=== PATIENT | male | born 1965 | race Caucasian/White ===

== ENCOUNTER 2020-11-14 15:58 | Inpatient (IN) | payer MEDICAID, SELFPAY ==
[~2020-11-14] VITALS: Ht 180.3 cm; Wt 86.6 kg
--- NOTE | 2020-11-14 16:10 | NUR ---
Patient to ER bed 07 to gown for evaluation. Side rails up.
[2020-11-14 16:12] VITALS: BP_SYST 140
--- NOTE | 2020-11-14 16:12 | NUR ---
Pt brought by ACLS/ pt homeless with c/o SOB, Hx of COPD , pt arrived on 5L NC with O2 99%,swelling noted on lower extremities, cap refill <3, pt afebrile at this time, speaking in full sentences, will cont to monitor.
--- NOTE | 2020-11-14 16:30 | NUR ---
Dr Michael evaluating patient at bedside
[2020-11-14] MEDS ORDERED: FURO-150 PO (16:37)
[2020-11-14] MEDS ORDERED: GLU500 PO (16:37)
--- NOTE | 2020-11-14 16:45 | NUR ---
Covid test sent to the lab
[2020-11-14 17:11] LABS: HEMATOCRIT 32.9 % (36-54); HEMOGLOBIN 10.2 g/dL (14.0-18.0); MEAN CORPUSCULAR HEMOGLOBIN 25 pg (27-31); MEAN CORPUSCULAR HGB CONC 31 % (32-36); MEAN CORPUSCULAR VOLUME 81 fL (79.0-98.0); PLATELET COUNT (AUTO) 186 K/uL (130-430); RED BLOOD CELL COUNT(AUTO) 4.05 MIL/uL (4.2-6.2); WHITE BLOOD COUNT (AUTO) 21.7 K/uL (4.8-10.8)
--- NOTE | 2020-11-14 17:30 | NUR ---
Pt A&Ox4, continues on NC 5L well tolerated.
[2020-11-14 17:47] LABS: SODIUM SERUM 131 mmol/L (136-145)
[2020-11-14 17:48] LABS: POTASSIUM 5.8 mmol/L (3.5-5.1)
[2020-11-14 17:49] LABS: ANION GAP 11 (5-15); CHLORIDE 99 mmol/L (98-107); CREATININE 2.39 mg/dL (0.55-1.30); GFR AFRICAN AMERICAN 37 mL/min (>90); GLUCOSE 202 mg/dL (70-99); UREA NITROGEN, BLOOD 30 mg/dL (8-21)
[2020-11-14 17:50] LABS: ALANINE AMINOTRANSFERASE 22 U/L (12-78); ALBUMIN 2.5 g/dL (3.4-4.8); ASPARTATE AMINOTRANSFERASE 68 U/L (10-37); TOTAL BILIRUBIN 1.3 mg/dL (0.0-1.0)
[2020-11-14 17:53] LABS: BAND % (MANUAL) 25 % (0-6); BASOPHILS % (MANUAL) 0 % (0-2); EOSINOPHILS % (MANUAL) 0 % (0-7); LYMPHOCYTES % (MANUAL) 6 % (20-46); MONOCYTES % (MANUAL) 4 % (0-11)
[2020-11-14 18:17] LABS: ACETONE, SERUM NEGATIVE (NEGATIVE); CKMB RELATIVE INDEX 0.6 (0.0-2.9); CREATINE KINASE MB 2.4 ng/mL (0-3.6)
[2020-11-14 18:26] LABS: INR 1.6 (0.80-1.20); PROTHROMBIN TIME 16.6 SECS (9.5-12.5)
[2020-11-14] MEDS ORDERED: SODIUM POLYSTYRENE SULFONATE 15 GM/60 ML UDBTL PO ONE (19:00)
[2020-11-14] MEDS ORDERED: LEVOFLOXACIN IN DEXTROSE 5 % 100 ML IV ONE (19:00)
[2020-11-14] MEDS ORDERED: NACL 0.9% 1,000 ML IV ONE ×2 (19:00)
[2020-11-14] MEDS ORDERED: PIPERACILLIN/TAZO 3.375 GM in NS 50 ML IV ONE (19:00)
[2020-11-14] MEDS ORDERED: PIPERACILLIN/TAZOBACTAM 3.375 GM/VIAL (ZOSYN) IV ONE (19:04)
[2020-11-14] MEDS ORDERED: ONDANSETRON HCL 4 MG/2 ML VIAL IVP ONE (19:15)
--- NOTE | 2020-11-14 19:17 | NUR ---
Dr Michael notified about elevated patient's BNP , per Dr Michael only give 1 liter of NS 100cc/hr and reassess patient.
--- NOTE | 2020-11-14 19:27 | NUR ---
receieved report from OMAR gold. will assume all care of patient. Patient AAOx4 resting, denies any chest pain or shortness of breath at this time. IVF running without difficulties.
--- NOTE | 2020-11-14 19:54 | NUR ---
Patient will be admitted to care of [facility]. Admitted to TELE unit. REQUESTED BED WITH CHARGE NURSE. Belongings list completed. Complete and up to date summary report printed. SBAR report to be given at bedside with opportunity for questions.
--- NOTE | 2020-11-14 19:59 | NUR ---
Patient's code status is FULL CODE paperwork completed and placed in chart.
--- NOTE | 2020-11-14 21:38 | NUR ---
ADMISSION NOTE Received patient from ER via [place], received report from Mary RN. Patient admitted with diagnosis of Sepsis and Pneumonia. Patient oriented to hospital routine, call light, toileting and safety-patient verbalized understanding.
[2020-11-14 21:45] VITALS: BP_SYST 103
--- NOTE | 2020-11-14 21:50 | NUR ---
INITIAL NOTES PATIENT RESTING, NO SIGNS OF SOB AT THIS TIME. CALL LIGHT WITHIN REACH, BED ALARM ON, BED AT LOWEST POSITION, BED LOCKED. FALL, RESPIRATORY, ASPIRATION, AND SAFETY PRECAUTIONS IN PLACE. PATIENT DEMONSTRATES PROPER CALL LIGHT USAGE. WILL CONTINUE TO MONITOR.
--- NOTE | 2020-11-14 22:00 | NUR ---
PATIENT'S BELONGINGS- METH PIPE AND TORCH WITH SECURITY JESSICA, EXPLAINED TO PATIENT THAT METH PIPE CANNOT BE RETURNED TO PATIENT AND HAS TO BE DISPOSED AND THE TORCH CAN BE GIVEN BACK TO PATIENT UPON DISCHARGE. PATIENT SLEEPY AT THE TIME BUT VERBALIZES BACK UNDERSTANDING.
[2020-11-14] MEDS ORDERED: DEXTROSE 50% JECT 50 ML DISP.SYRIN IVP PRN (22:15)
[2020-11-14] MEDS ORDERED: HYDROcodone/ACETAMIN 5-325 MG TAB (NORCO/ VICODIN) PO PRN (22:15)
[2020-11-14] MEDS ORDERED: GLUCOSE (DEXTROSE) ORAL GEL -Adults PO PRN (22:15)
[2020-11-14] MEDS ORDERED: D5W 1,000 ML IV PRN (22:15)
[2020-11-14] MEDS ORDERED: NALOXONE HCL 0.4 MG/ML AMP (NARCAN) IVP PRN ×2 (22:15)
[2020-11-14] MEDS ORDERED: ACETAMINOPHEN 325 MG TABLET PO PRN (22:15)
[2020-11-14] MEDS ORDERED: D5/0.45 NS 1,000 ML IV SCH (22:15)
[2020-11-14] MEDS ORDERED: ONDANSETRON HCL 4 MG/2 ML VIAL IVP PRN (22:15)
[2020-11-14] MEDS ORDERED: LEVOFLOXACIN 250 MG/D5W 50 ML IV ONE (23:30)
[2020-11-14] MEDS ORDERED: PIPERACILLIN/TAZOBACTAM 2.25 GM VIAL IV ONE (23:31)
--- NOTE | 2020-11-14 23:51 | NUR ---
CONSULTATION PAGED/CALLED Reason for Consultation: SEPSIS Person Who was Notified:OMAR Consulting Physician: Lissa NIEVES Motor Vehicle Clerk Specialty: Ordering Physician: Cruz ARRIAGA
--- NOTE | 2020-11-14 23:53 | NUR ---
CONSULTATION PAGED/CALLED Reason for Consultation: MAGALIE Person Who was Notified: OMAR Consulting Physician: JARAD LOREDO IS ATM MECHANIC FOR LIZETH LOREDO Public Housing Interviewer Specialty: Ordering Physician: Cruz ARRIAGA
--- NOTE | 2020-11-14 23:57 | NUR ---
CONSULTATION PAGED/CALLED Reason for Consultation: TRANSAMINITIS Person Who was Notified:OMAR Consulting Physician: ARDEN OTERO ACADEMY EDUCATION DIRECTOR Impersonator Character Specialty: Ordering Physician: Cruz ARRIAGA
[2020-11-15 00:15] VITALS: BP_SYST 100
--- NOTE | 2020-11-15 00:43 | NUR ---
CONSULTATION PAGED/CALLED Reason for Consultation: ELEVATED TROP Person Who was Notified:FLORENTINO Consulting Physician: Opal ARRIAGA Skilled Nursing Professional Specialty: Ordering Physician: Roxanne ROMERO
[2020-11-15] MEDS: PIPERACILLIN/TAZO 2.25G/DEX-IS 50 ML IV SCH ×5 (01:07→23:51)
--- NOTE | 2020-11-15 04:10 | NUR ---
PATIENT USED CALL LIGHT TO ASK FOR BED HEARN, NO SIGNS OF DISTRESS NOTED. NO OTHER NEEDS AT THIS TIME. WILL CONTINUE TO MONITOR.
[2020-11-15] MEDS: INSULIN REGULAR, HUMAN 100 UNITS/ML, 10 ML VIAL (humuLIN R) SUBCUT PRN ×4 (06:09→21:03)
--- NOTE | 2020-11-15 06:40 | NUR ---
DR. CALVERT MAKING ROUNDS, WILL FOLLOW THROUGH.
--- NOTE | 2020-11-15 06:43 | NUR ---
CLOSING NOTES PATIENT RESTING, LESS LETHARGIC THIS MORNING, NO SIGNS OF SOB THROUGHOUT SHIFT. CALL LIGHT WITHIN REACH, BED ALARM ON, BED AT LOWEST POSITION, BED LOCKED. FALL, RESPIRATORY, ASPIRATION, AND SAFETY PRECAUTIONS IN PLACE THROUGHOUT SHIFT. PATIENT DEMONSTRATES PROPER CALL LIGHT USAGE. ALL NEEDS MET THROUGHOUT SHIFT. WILL ENDORSE CARE TO ONCOMING SHIFT.
--- NOTE | 2020-11-15 07:30 | NUR ---
Routine Patient resting comfortably in bed with no distress noted. Patient stable at this time.
[2020-11-15 07:36] LABS: CALCIUM 7.7 mg/dL (8.4-11.0); CREATININE 2.32 mg/dL (0.55-1.30); PHOSPHORUS 3.9 mg/dL (2.7-4.5); POTASSIUM 4.2 mmol/L (3.5-5.1); TOTAL BILIRUBIN 0.9 mg/dL (0.0-1.0)
[2020-11-15 08:00] VITALS: BP_SYST 106
[2020-11-15] MEDS ORDERED: FUROSEMIDE 40 MG/4 ML VIAL IVP ONE (08:00)
[2020-11-15 08:24] LABS: BASOPHILS % (AUTO) 0.1 % (0.0-2.0); HEMATOCRIT 30.4 % (36-54); HEMOGLOBIN 9.4 g/dL (14.0-18.0); LYMPHOCYTES % (AUTO) 5.2 % (20.5-51.5); MEAN CORPUSCULAR HEMOGLOBIN 26 pg (27-31); MEAN CORPUSCULAR HGB CONC 31 % (32-36); MEAN CORPUSCULAR VOLUME 83 fL (79.0-98.0); MONOCYTES # (AUTO) 0.6 K/uL (0.0-1.0); MONOCYTES % (AUTO) 3.2 % (1.7-9.3); NEUTROPHILS # (AUTO) 16.8 K/uL (1.8-7.7); NEUTROPHILS % (AUTO) 91.5 % (40.0-70.0); PLATELET COUNT (AUTO) 157 K/uL (130-430); RED BLOOD CELL COUNT(AUTO) 3.68 MIL/uL (4.2-6.2); RED CELL DISTRIBUTION WIDTH 18.8 % (9.0-15.0); WHITE BLOOD COUNT (AUTO) 18.4 K/uL (4.8-10.8)
--- NOTE | 2020-11-15 09:55 | NUR ---
Patient resting quietly in bed with Dr. Michelle Carias at bedside. Patient stable at this time. Addendum: 11/15/20 at 1218 by Erin Ballard RN Late entry: Doctor made aware of critical lab: troponin 0.451.
--- NOTE | 2020-11-15 10:04 | NUR ---
Nutrition Update Preston Scale 17 noted. Pt admitted for sepsis and pneumonia. Diet: CCHO, cardiac BMI: 26.8 kg/m2 RD to follow per nutrition care standards.
--- NOTE | 2020-11-15 10:05 | NUR ---
CONSULTATION PAGED/CALLED Reason for Consultation: [] GALLSTONES Person Who was Notified: [] VICKY Consulting Physician: [] DR Roxanne ANDREWS Proposal Manager Writer Specialty: [] GEN SURGEON Ordering Physician: [] DR Roxanne ARRIAGA
--- NOTE | 2020-11-15 10:08 | NUR ---
Scheduled IVP medication given per order. Patient stable with Liane (sql tech) at bedside to do 2D echo.
[2020-11-15 11:12] LABS: AMYLASE 10 U/L (0-100); LIPASE 24 U/L (73-393)
[2020-11-15 11:13] LABS: ALCOHOL, BLOOD < 3 mg/dL (<10)
--- NOTE | 2020-11-15 11:14 | NUR ---
Scheduled IV abx given per order. Checked blood sugar: 172 mg/dl - will cover per sliding scale. Emptied 300mls of clear, light williams urine from urinal. Patient stable at this time. Addendum: 11/15/20 at 1157 by Erin Ballard RN Covered per sliding scale.
[2020-11-15 12:08] VITALS: BP_SYST 123
[2020-11-15 12:25] LABS: BARBITURATE, URINE NEGATIVE (NEG <=200); BENZODIAZEPINE, URINE NEGATIVE (NEG <=150); CANNABINOID, URINE NEGATIVE (NEG <=50); COCAINE, URINE NEGATIVE (NEG <=150); METHAMPHETAMINES SCREEN,URINE POSITIVE (NEG <=500); OPIATE, URINE NEGATIVE (NEG <=100); PHENCYCLIDINE SCREEN,URINE NEGATIVE (NEG <=25); UR TRICYCLIC ANTIDEPRESSANTS NEGATIVE (NEG <=300); URINE AMPHETAMINE POSITIVE (NEG <=500); URINE METHADONE NEGATIVE (NEG <=200); URINE OXYCODONE SCREEN NEGATIVE (NEG <=100); URINE PROPOXYPHENE SCREEN NEGATIVE (NEG <=300)
[2020-11-15] MEDS ORDERED: MAGNESIUM SUL 2 GM/50 ML PREMIX IV ONE ×2 (12:30→15:45)
[2020-11-15] MEDS ORDERED: MAGNESIUM SULFATE 1 GM/2 ML VIAL IVP ONE (12:30)
[2020-11-15 13:08] LABS: BILIRUBIN,URINE NEGATIVE (NEGATIVE); CLARITY/URINE CLEAR (CLEAR); COLOR,URINE YELLOW (YELLOW); GLUCOSE,URINE NEGATIVE (NEGATIVE); KETONES,URINE NEGATIVE (NEGATIVE); LEUKOCYTE ESTERASE ,URINE NEGATIVE (NEGATIVE); NITRITE, URINE NEGATIVE (NEGATIVE); PH,URINE 5.5 (5.0-8.0); PROTEIN URINE 1+ (NEGATIVE)
[2020-11-15 13:54] LABS: BLOOD, URINE TRACE (NEGATIVE)
--- NOTE | 2020-11-15 14:52 | NUR ---
Dietitian Recommendations * Recommend CCHO, cardiac, chopped diet w/ Glucerna BID (ONS provides an additional 440 kcal/day, 20 gm protein/day) * Moist foods/provide extra sauces/gravies TID * Consider ST mary martel LP, RD Please refer to Nutrition Assessment for details. Addendum: 11/15/20 at [address] Amended: Links added.
--- NOTE | 2020-11-15 15:40 | NUR ---
Scheduled IV medication given per order. Patient resting quietly in bed with no distress noted; denies any pain. Patient stable.
[2020-11-15 16:48] VITALS: BP_SYST 106
--- NOTE | 2020-11-15 16:58 | NUR ---
Checked blood sugar: 157 mg/dl - will cover per sliding scale. Patient stable at this time. Addendum: 11/15/20 at 1708 by Erin Ballard RN Covered per sliding scale. Addendum: 11/15/20 at 1740 by Erin Ballard RN Late entry: 1700: Emptied 575mls of clear, yellow urine from urinal.
[2020-11-15 17:27] LABS: BACTERIA,URINE RARE /HPF (None Seen); RBC,URINE 0-3 /HPF (0-3); WBC,URINE 0-3 /HPF (0-3)
[2020-11-15 17:28] LABS: MUCUS,URINE None Seen /LPF (None Seen)
--- NOTE | 2020-11-15 17:42 | NUR ---
Scheduled IV abx given per order. Patient resting in quietly in bed at this time. Patient stable.
--- NOTE | 2020-11-15 18:35 | NUR ---
Patient eating dinner at this time. Stable throughout shift with no complaint of pain or discomfort.
--- NOTE | 2020-11-15 19:15 | NUR ---
OPENING NOTES: Received patient report from morning shift RN. Patient in bed, AAOx4, breathing evenly and nonlabored on room air, HOB elevated, no S/S of distress. Patient has IV on the LFA 18G, patent, benign, and flushing. No S/S of infection or infiltration. Bed armed, locked, and at lowest position. Educated patient on plan of care, fall/safety precaution, call light system. Patient verbalized understanding and returned demonstration. Will continue to monitor.
[2020-11-15 20:00] VITALS: BP_SYST 115
[2020-11-15] MEDS ORDERED: LEVOFLOXACIN 250 MG/D5W 50 ML IV SCH ×2 (21:00)
[2020-11-15] MEDS: HYDROcodone/ACETAMIN 10-325 MG TAB PO PRN (21:50)
[2020-11-16] VITALS: BP_SYST 107
[2020-11-16] MEDS: PIPERACILLIN/TAZO 2.25G/DEX-IS 50 ML IV SCH ×4 (06:00→23:05)
[2020-11-16] MEDS: INSULIN REGULAR, HUMAN 100 UNITS/ML, 10 ML VIAL (humuLIN R) SUBCUT PRN ×4 (06:00→21:37)
--- NOTE | 2020-11-16 06:33 | NUR ---
CLOSING NOTES: Patient on bed, eyes closed, no S/S of distress, breathing evenly and nonlabored on room air, HOB elevated, with IV on LFA 18g, patent, benign, and flushing, no S/S of infection or infiltration. Wound care provided. Bed armed, locked, and at lowest position. Will continue to monitor and endorse care to morning RN.
--- NOTE | 2020-11-16 07:25 | NUR ---
OPENING NOTES: RECEIVED REPORT FROM SITE SUPERINTENDENT NURSE. PATIENT IS AWAKE LAYING DOWN IN BED. TOLERATED OXYGEN ON ROOM AIR WITH NO DISTRESS NOTED. IV LINE PATENT AND INTACT WITH NO INFILTRATION NOTED. PATIENT STABLE AT THIS TIME. SAFETY, FALL, AND ASPIRATION PRECAUTIONS ARE IN PLACE. BED LOCKED IN LOWEST POSITION AND CALL LIGHT IN REACH. WILL CONTINUE TO MONITOR PATIENT FOR ANY CHANGES.
[2020-11-16 08:00] VITALS: BP_SYST 124
[2020-11-16 08:17] LABS: BASOPHILS % (AUTO) 0.3 % (0.0-2.0); EOSINOPHILS % (AUTO) 0.3 % (0.0-4.0); HEMATOCRIT 33.6 % (36-54); HEMOGLOBIN 10.6 g/dL (14.0-18.0); LYMPHOCYTES # (AUTO) 1.2 K/uL (1.0-5.5); LYMPHOCYTES % (AUTO) 10.2 % (20.5-51.5); MEAN CORPUSCULAR HEMOGLOBIN 26 pg (27-31); MEAN CORPUSCULAR HGB CONC 32 % (32-36); MEAN CORPUSCULAR VOLUME 82 fL (79.0-98.0); MONOCYTES # (AUTO) 0.8 K/uL (0.0-1.0); MONOCYTES % (AUTO) 6.4 % (1.7-9.3); NEUTROPHILS % (AUTO) 82.8 % (40.0-70.0); PLATELET COUNT (AUTO) 166 K/uL (130-430); RED BLOOD CELL COUNT(AUTO) 4.12 MIL/uL (4.2-6.2); RED CELL DISTRIBUTION WIDTH 19.2 % (9.0-15.0)
[2020-11-16 08:27] LABS: WHITE BLOOD COUNT (AUTO) 12.1 K/uL (4.8-10.8)
[2020-11-16] MEDS: FUROSEMIDE 20 MG/2 ML VIAL IVP SCH (08:43)
[2020-11-16 08:47] LABS: ALBUMIN 1.9 g/dL (3.4-4.8); CALCIUM 7.9 mg/dL (8.4-11.0); CREATININE 1.79 mg/dL (0.55-1.30); PHOSPHORUS 4.1 mg/dL (2.7-4.5); POTASSIUM 3.9 mmol/L (3.5-5.1); TOTAL BILIRUBIN 0.8 mg/dL (0.0-1.0)
--- NOTE | 2020-11-16 09:07 | NUR ---
Nutrition Note Nutrition Consult received for open wounds, diabetic 11/16/20 5260. Pt was seen and assessed by RD 11/15/20. Please refer to Nutrition Assessment for details. RD to continue to follow as per nutrition care standards.
[2020-11-16 09:25] LABS: ERYTHROCYTE SEDIMENTATION RATE 27 MM/HR (0-15)
[2020-11-16 09:36] LABS: C-REACTIVE PROTEIN QUANT 20.5 mg/dL (0-0.5)
[2020-11-16 12:00] VITALS: BP_SYST 120
[2020-11-16 16:00] VITALS: BP_SYST 122
--- NOTE | 2020-11-16 18:35 | NUR ---
CLOSING NOTES: PATIENT IS AWAKE LAYING DOWN IN BED. TOLERATED OXYGEN ON ROOM AIR WITH NO DISTRESS NOTED. IV LINE PATENT AND INTACT WITH NO INFILTRATION NOTED. PATIENT STABLE AT THIS TIME. SAFETY, FALL, AND ASPIRATION PRECAUTIONS REMAINED IN PLACE. BED LOCKED IN LOWEST POSITION AND CALL LIGHT IN REACH. WILL ENDORSE PATIENT CARE TO ONCOMING LEVER MILLER NURSE.
--- NOTE | 2020-11-16 19:15 | NUR ---
OPENING NOTES: Received patient report from am nurse. Patient in bed, AAOx4, breathing evenly and nonlabored on 2L of O2 via nc, HOB elevated, no s/s of distress. Patient has an IV on the LFA 18G, patent, benign, and flushing. No S/S of infection or infiltration. Bed armed, locked, and at lowest position. Educated patient on plan of care and call light use. Patient verbalized understanding with return demonstration. Will continue to monitor.
[2020-11-16 20:00] VITALS: BP_SYST 108
--- NOTE | 2020-11-16 21:20 | NUR ---
TRANSFER OF CARE Endorsed care to OMAR Gu. Patient in bed, AAOx4, breathing evenly and nonlabored on 2L of O2 via nc, HOB elevated, no s/s of distress. Patient has an IV on the LFA 18G, patent, benign, and flushing. No S/S of infection or infiltration. Bed armed, locked, and at lowest position. Educated patient on plan of care and call light use. Patient verbalized understanding with return demonstration. Transferred from room 102B to 121 C, patient belongings are at bedside. Patient tolerated transfer well.
--- NOTE | 2020-11-16 21:25 | NUR ---
TRANSFER OF CARE RECEIVED PATIENT RESTING, NO SIGNS OF DISTRESS NOTED. 2L NC. FALL, SAFETY, RESPIRATORY, AND ASPIRATION PRECAUTIONS IN PLACE. CALL LIGHT WITHIN REACH, BED ALARM ON, BED AT LOWEST POSITION, BED LOCKED. ALL BELONGINGS WITH PATIENT. NO NEEDS AT THIS TIME. WILL CONTINUE TO MONITOR.
--- NOTE | 2020-11-16 23:10 | NUR ---
SPOKE TO DR. ARRIAGA, RECEIVED ONE TIME ORDER OF TRAZADONE 50 MG PO FOR SLEEP, PATIENT REQUESTS MEDICATION TO HELP WITH SLEEP. WILL FOLLOW THROUGH.
--- NOTE | 2020-11-16 23:13 | NUR ---
HIGH ALERT NOTE: Called Dr. ARRIAGA back at identified within the medical roster to verify physician authenticity.
[2020-11-16] MEDS ORDERED: traZODone HCL 50 MG TABLET (DESYREL) PO ONE (23:15)
[2020-11-17] VITALS: BP_SYST 112
--- NOTE | 2020-11-17 00:20 | NUR ---
PATIENT RESTING, NO SINGS OF ACUTE RESPIRATORY DISTRESS NOTED. WILL CONTINUE TO MONITOR.
--- NOTE | 2020-11-17 01:34 | NUR ---
PATIENT RESTING, NO SIGNS OF DISTRESS NOTED. NO NEEDS AT THIS TIME. WILL CONTINUE TO MONITOR.
[2020-11-17] MEDS: PIPERACILLIN/TAZO 2.25G/DEX-IS 50 ML IV SCH ×4 (05:31→23:34)
--- NOTE | 2020-11-17 07:10 | NUR ---
CLOSING NOTES PATIENT RESTING, LESS LETHARGIC THIS MORNING, NO SIGNS OF SOB THROUGHOUT SHIFT. CALL LIGHT WITHIN REACH, BED ALARM ON, BED AT LOWEST POSITION, BED LOCKED. FALL, RESPIRATORY, ASPIRATION, AND SAFETY PRECAUTIONS IN PLACE THROUGHOUT SHIFT. PATIENT DEMONSTRATES PROPER CALL LIGHT USAGE. ALL NEEDS MET THROUGHOUT SHIFT. WILL ENDORSE CARE TO ONCOMING SHIFT. Addendum: 11/17/20 at 0725 by Riccardo Encarnacion RN WRONG NOTE- PLEASE DISREGARD.
--- NOTE | 2020-11-17 07:20 | NUR ---
OPENING NOTES: RECEIVED REPORT FROM WEATHERIZATION OPERATIONS MANAGER NURSE. PATIENT IS AWAKE LAYING DOWN IN BED. TOLERATED OXYGEN ON ROOM AIR WITH NO DISTRESS NOTED. IV LINE PATENT AND INTACT WITH NO INFILTRATION NOTED. PATIENT STABLE AT THIS TIME. SAFETY, FALL, AND ASPIRATION PRECAUTIONS ARE IN PLACE. BED LOCKED IN LOWEST POSITION AND CALL LIGHT IN REACH. WILL CONTINUE TO MONITOR PATIENT FOR ANY CHANGES.
--- NOTE | 2020-11-17 07:25 | NUR ---
CLOSING NOTES PATIENT RESTING, NO SIGNS OF SOB THROUGHOUT SHIFT. HOB ELEVATED. CALL LIGHT WITHIN REACH, BED ALARM ON, BED AT LOWEST POSITION, BED LOCKED. FALL, RESPIRATORY, ASPIRATION, AND SAFETY PRECAUTIONS IN PLACE THROUGHOUT SHIFT. PATIENT DEMONSTRATED PROPER CALL LIGHT USAGE. ALL NEEDS MET THROUGHOUT SHIFT. WILL ENDORSE CARE TO ONCOMING SHIFT.
[2020-11-17 07:44] LABS: CALCIUM 7.9 mg/dL (8.4-11.0); CREATININE 1.48 mg/dL (0.55-1.30); PHOSPHORUS 3.9 mg/dL (2.7-4.5)
[2020-11-17 08:00] VITALS: BP_SYST 111
[2020-11-17 08:06] LABS: FERRITIN 100 ng/mL (30-400); HEPATITIS A AB, IgM Negative (Negative); HEPATITIS B CORE AB, IgM Negative (Negative); HEPATITIS B SURFACE AG Negative (Negative)
[2020-11-17 09:27] LABS: BASOPHILS % (AUTO) 0.3 % (0.0-2.0); EOSINOPHILS # (AUTO) 0.1 K/uL (0.0-0.4); EOSINOPHILS % (AUTO) 0.7 % (0.0-4.0); HEMATOCRIT 31.9 % (36-54); HEMOGLOBIN 10.2 g/dL (14.0-18.0); LYMPHOCYTES # (AUTO) 1.2 K/uL (1.0-5.5); LYMPHOCYTES % (AUTO) 15.7 % (20.5-51.5); MEAN CORPUSCULAR HEMOGLOBIN 26 pg (27-31); MEAN CORPUSCULAR HGB CONC 32 % (32-36); MEAN CORPUSCULAR VOLUME 81 fL (79.0-98.0); MONOCYTES # (AUTO) 0.4 K/uL (0.0-1.0); MONOCYTES % (AUTO) 5.5 % (1.7-9.3); NEUTROPHILS # (AUTO) 5.9 K/uL (1.8-7.7); NEUTROPHILS % (AUTO) 77.8 % (40.0-70.0); PLATELET COUNT (AUTO) 158 K/uL (130-430); RED BLOOD CELL COUNT(AUTO) 3.92 MIL/uL (4.2-6.2); RED CELL DISTRIBUTION WIDTH 18.5 % (9.0-15.0)
[2020-11-17] MEDS: FUROSEMIDE 20 MG/2 ML VIAL IVP SCH (09:29)
[2020-11-17 09:59] LABS: WHITE BLOOD COUNT (AUTO) 7.6 K/uL (4.8-10.8)
[2020-11-17 10:48] LABS: C-REACTIVE PROTEIN QUANT 13.4 mg/dL (0-0.5)
[2020-11-17 10:51] LABS: ERYTHROCYTE SEDIMENTATION RATE 25 MM/HR (0-15)
[2020-11-17] MEDS: INSULIN REGULAR, HUMAN 100 UNITS/ML, 10 ML VIAL (humuLIN R) SUBCUT PRN ×3 (11:10→21:00)
--- NOTE | 2020-11-17 12:00 | NUR ---
HIGH ALERT NOTE: Called Cleve Lazar called back at noon identified within the medical roster to verify physician authenticity.
[2020-11-17 12:21] VITALS: BP_SYST 110
[2020-11-17] MEDS ORDERED: MAGNESIUM SULFATE 1 GM/2 ML VIAL IVP ONE (14:30)
[2020-11-17] MEDS ORDERED: MAGNESIUM SULFATE 1 GM in NS 100 ML IV ONE (15:00)
[2020-11-17 16:34] VITALS: BP_SYST 114
--- NOTE | 2020-11-17 18:50 | NUR ---
CLOSING NOTES: PATIENT IS AWAKE LAYING DOWN IN BED. TOLERATED OXYGEN ON ROOM AIR WITH NO DISTRESS NOTED. IV LINE PATENT AND INTACT WITH NO INFILTRATION NOTED. PATIENT STABLE AT THIS TIME. SAFETY, FALL, AND ASPIRATION PRECAUTIONS REMAINED IN PLACE. BED LOCKED IN LOWEST POSITION AND CALL LIGHT IN REACH. WILL ENDORSE PATIENT CARE TO ONCOMING BILLING ADJUDICATOR NURSE.
--- NOTE | 2020-11-17 19:30 | NUR ---
Opening note Received pt report from am nurse. resting in bed with HOB elevated, AAOx4, breathing evenly and nonlabored on 2L of O2 via nc stat 100%. No s/s of distress. Has IV on the LFA 18G, patent and benign, no complications or or infiltration. Bed armed/locked/lowest position with call light within reach. Educated patient on plan of care and call light use. Patient verbalized understanding with return demonstration. On safety/fall/aspiration precaution.
[2020-11-17 20:35] VITALS: BP_SYST 126
[2020-11-17] MEDS: CARVEDILOL 3.125 MG TABLET (COREG) PO SCH (20:50)
[2020-11-17] MEDS: HYDROcodone/ACETAMIN 10-325 MG TAB PO PRN (21:51)
--- NOTE | 2020-11-18 00:15 | NUR ---
note Pt resting comfortable, no c/o pain or discomfort, vitals stable.
--- NOTE | 2020-11-18 00:30 | NUR ---
note Pt awake, alert. Vitals stable, no distress noted. All needs attended to.
[2020-11-18 00:34] VITALS: BP_SYST 113
--- NOTE | 2020-11-18 04:46 | NUR ---
note Pt sleeping, no distress noted. Empty urinal at bedside with 250 output.
[2020-11-18] MEDS: PIPERACILLIN/TAZO 2.25G/DEX-IS 50 ML IV SCH ×3 (05:16→17:21)
[2020-11-18] MEDS: INSULIN REGULAR, HUMAN 100 UNITS/ML, 10 ML VIAL (humuLIN R) SUBCUT PRN ×4 (05:39→21:27)
--- NOTE | 2020-11-18 06:05 | NUR ---
Closing note Pt alert and awake with HOB elevated. Watching tv and having coffee. Breathing evenly and nonlabored on 2L of O2 via nc stat 100%. No s/s of distress. IV LFA 18G, patent and benign, no complications or or infiltration. Bed armed/locked/lowest position with call light within reach. Educated patient on plan of care and call light use. Patient verbalized understanding with return demonstration. All needs attended. On safety/fall/aspiration precaution.
[2020-11-18 08:00] VITALS: BP_SYST 108
[2020-11-18] MEDS: FUROSEMIDE 20 MG TABLET PO SCH (08:44)
[2020-11-18] MEDS: IBUPROFEN 600 MG TABLET PO SCH ×3 (08:44→21:23)
[2020-11-18] MEDS: CARVEDILOL 3.125 MG TABLET (COREG) PO SCH ×2 (08:45→21:24)
[2020-11-18] MEDS: ENOXAPARIN SODIUM 40 MG/0.4 ML SYRINGE SUBCUT SCH (08:50)
[2020-11-18] MEDS ORDERED: *LOVENOX 1MG/KG Q12H/PHARMACY XX SCH (09:00)
[2020-11-18 09:18] LABS: BASOPHILS % (AUTO) 0.5 % (0.0-2.0); EOSINOPHILS % (AUTO) 0.4 % (0.0-4.0); HEMATOCRIT 33.5 % (36-54); HEMOGLOBIN 10.7 g/dL (14.0-18.0); LYMPHOCYTES # (AUTO) 1.3 K/uL (1.0-5.5); LYMPHOCYTES % (AUTO) 14.8 % (20.5-51.5); MEAN CORPUSCULAR HEMOGLOBIN 26 pg (27-31); MEAN CORPUSCULAR HGB CONC 32 % (32-36); MEAN CORPUSCULAR VOLUME 82 fL (79.0-98.0); MONOCYTES # (AUTO) 0.8 K/uL (0.0-1.0); MONOCYTES % (AUTO) 9.3 % (1.7-9.3); NEUTROPHILS # (AUTO) 6.4 K/uL (1.8-7.7); PLATELET COUNT (AUTO) 174 K/uL (130-430); RED BLOOD CELL COUNT(AUTO) 4.09 MIL/uL (4.2-6.2); RED CELL DISTRIBUTION WIDTH 18.9 % (9.0-15.0); WHITE BLOOD COUNT (AUTO) 8.6 K/uL (4.8-10.8)
[2020-11-18 10:08] LABS: ALBUMIN 1.9 g/dL (3.4-4.8); C-REACTIVE PROTEIN QUANT 8.8 mg/dL (0-0.5); CALCIUM 7.9 mg/dL (8.4-11.0); CREATININE 1.29 mg/dL (0.55-1.30); PHOSPHORUS 3.5 mg/dL (2.7-4.5); POTASSIUM 4.3 mmol/L (3.5-5.1); TOTAL BILIRUBIN 0.7 mg/dL (0.0-1.0)
[2020-11-18 11:24] LABS: ERYTHROCYTE SEDIMENTATION RATE 28 MM/HR (0-15)
[2020-11-18 12:00] VITALS: BP_SYST 104
--- NOTE | 2020-11-18 14:57 | NUR ---
Referral for SNF placement Faxed to RAMON Chirinos @ [phone]-phone #[phone]
--- NOTE | 2020-11-18 15:11 | NUR ---
Received a call from Fide [phone]/ fax [phone]- for [facility]-she stated she is patient's CM-requested information for SNF placement be sent to her. Information faxed to her.
[2020-11-18 16:00] VITALS: BP_SYST 108
--- NOTE | 2020-11-18 18:41 | NUR ---
CLOSING NOTE PATIENT AWAKE IN BED, SITTING UP EATING DINNER. PATIENT ON 2LT NC, WITH NO LABORED BREATHING. PATIENT CURRENTLY DENIES PAIN OR DISCOMFORT. IV IN PLACE AND IN TACT. SAFETY, FALL AND ASPIRATION PRECAUTIONS IN PLACE. CALL LIGHT IN REACH, BED IN LOWEST POSITION AND LOCKED AND RAILS ARE UP. ALL NEED MET THROUGHOUT SHIFT. WILL ENDORSE TO MEMBERSHIP ADMINISTRATOR.
--- NOTE | 2020-11-18 18:46 | NUR ---
THIS RN CONCURS WITH AMANDA DELACRUZ'S ASSESSMENT OF PATIENT.
[2020-11-18 20:00] VITALS: BP_SYST 116
--- NOTE | 2020-11-18 20:00 | NUR ---
AWAKE, ALERT. LOWER EXTREMITIES EDEMATOUS WITH DARK DISCOLORATION, SEVERAL WOUNDS NOTED, BETITO D/Jeet. .
--- NOTE | 2020-11-18 21:00 | NUR ---
ACCU-CHEK 169, 2 UNITS REGULAR INSULIN SQ GIVEN PER SLIDING SCALE COV. ATIVAN 1 MG IVP GIVEN PER PT REQUEST FOR SLEEP. HOB UP TO COMFORT.
[2020-11-18] MEDS: LORazepam 2 MG/ML VIAL IVP PRN (21:30)
--- NOTE | 2020-11-18 22:00 | NUR ---
VOIDED 100CC CONCENTRATED NADINE URINE VIA URINAL.
[2020-11-19] VITALS: BP_SYST 112
--- NOTE | 2020-11-19 | NUR ---
DOZES ON AND OFF. NO DISTRESS NOTED.
[2020-11-19] MEDS: PIPERACILLIN/TAZO 2.25G/DEX-IS 50 ML IV SCH ×4 (00:02→17:17)
--- NOTE | 2020-11-19 03:00 | NUR ---
SLEPT INTERMITTENTLY. VOIDED 250CC CLOUDY NADINE URINE VIA URINAL.
--- NOTE | 2020-11-19 05:30 | NUR ---
VOIDED 250CC CLOUDY NADINE URINE VIA URINAL.
--- NOTE | 2020-11-19 06:00 | NUR ---
IV DISLODGED. NEW PIV GAUGE # 22 STARTED IN RIGHT FOREARM USING ASEPTIC TECHNIQUE. SLEPT WELL MOST OF NOC. NO COMPLAINTS OFFERED AT THIS TIME. REMAINS IN GUARDED CONDITION.
[2020-11-19] MEDS: INSULIN REGULAR, HUMAN 100 UNITS/ML, 10 ML VIAL (humuLIN R) SUBCUT PRN ×4 (06:19→21:10)
--- NOTE | 2020-11-19 06:24 | NUR ---
ACCU-CHEK 107, NO INSULIN DUE PER SLIDING SCALE COV.
[2020-11-19 07:05] LABS: BASOPHILS % (AUTO) 0.5 % (0.0-2.0); EOSINOPHILS # (AUTO) 0.1 K/uL (0.0-0.4); EOSINOPHILS % (AUTO) 0.9 % (0.0-4.0); HEMATOCRIT 34.5 % (36-54); HEMOGLOBIN 10.9 g/dL (14.0-18.0); LYMPHOCYTES # (AUTO) 1.5 K/uL (1.0-5.5); LYMPHOCYTES % (AUTO) 17.7 % (20.5-51.5); MEAN CORPUSCULAR HEMOGLOBIN 26 pg (27-31); MEAN CORPUSCULAR HGB CONC 32 % (32-36); MEAN CORPUSCULAR VOLUME 82 fL (79.0-98.0); MONOCYTES # (AUTO) 0.9 K/uL (0.0-1.0); MONOCYTES % (AUTO) 10.7 % (1.7-9.3); NEUTROPHILS % (AUTO) 70.2 % (40.0-70.0); PLATELET COUNT (AUTO) 179 K/uL (130-430); RED BLOOD CELL COUNT(AUTO) 4.24 MIL/uL (4.2-6.2); RED CELL DISTRIBUTION WIDTH 18.6 % (9.0-15.0); WHITE BLOOD COUNT (AUTO) 8.5 K/uL (4.8-10.8)
[2020-11-19 07:27] LABS: CREATININE 1.16 mg/dL (0.55-1.30); POTASSIUM 4.2 mmol/L (3.5-5.1)
[2020-11-19 08:00] VITALS: BP_SYST 121
[2020-11-19] MEDS: CARVEDILOL 3.125 MG TABLET (COREG) PO SCH ×2 (08:05→21:09)
[2020-11-19] MEDS: IBUPROFEN 600 MG TABLET PO SCH (08:06)
[2020-11-19] MEDS: FUROSEMIDE 20 MG TABLET PO SCH (08:06)
[2020-11-19] MEDS: ENOXAPARIN SODIUM 40 MG/0.4 ML SYRINGE SUBCUT SCH (08:10)
--- NOTE | 2020-11-19 08:15 | NUR ---
NURSING NOTE PATIENT SITTING UP IN BED EATING BREAKFAST. MORNING MEDICATIONS GIVEN. NO COMPLAINTS OF PAIN OR DISTRESS. DOCTOR TERRY IS AT BEDSIDE. PER DOCTOR TERRY, LIDOCAINE PATCH ORDERED AND MOTRIN 200MG TID WITH FOOD.
[2020-11-19] MEDS ORDERED: LIDOCAINE PATCH 5% 1 EA TP ONE (09:00)
[2020-11-19 09:45] LABS: ERYTHROCYTE SEDIMENTATION RATE 28 MM/HR (0-15)
[2020-11-19 12:00] VITALS: BP_SYST 138
[2020-11-19] MEDS ORDERED: NA PHOS 30 MM in NS 250 ML IV ONE (12:00)
--- NOTE | 2020-11-19 14:38 | NUR ---
WOUND EVALUATION: Late note for 11/19/2020 at 1438 secondary to patient care. Wound Consult received from Dr. Cleve Carias. Thank you, Dr. Carias, for the consult. Patient received in a Tangela Bed with an Isoflex NINOSKA mattress, awake, alert, oriented. Patient is unable to turn in bed independently. Preston Score is a 14. Past Medical History: Diabetes Mellitus, Liver Cirrhosis. Recent Labs: WBC 8.5, RBC 4.24, hemoglobin 10.9, hematocrit 34.5, ESR 28, BUN 31, creatinine 1.16, GFR 70, glucose 102, POC glucose 188, calcium 8.0, C-reactive protein 9.60, alb 1.9. Microbiology: Blood culture results x2 negative. Sputum culture results negative. Intrinsic factors that delay wound healing: Diabetes Mellitus, Liver Cirrhosis, severe Hypoalbuminemia. Extrinsic factors that delay wound healing: Decreased mobility. Wound Assessment: 1. Right Great Toe, Plantar Medial Aspect: Diabetic ulcer, present on admission. Wound bed has 80% black eschar, 20% yellow eschar. No odor, no drainage. Periwound intact. Dry, stable. Wound measures 4.0 cm x 2.6 cm. Recommend: [place] site with Betadine daily. Keep site open to air. 2. Right Heel, Plantar Aspect: Diabetic ulcer, present on admission. Wound bed has 90% yellow slough, 10% pink tissue. No odor, scant yellow purulent drainage. Periwound intact, pink. Wound measures 2.5 cm x 1.5 cm. 3. Right Lateral Fifth Metatarsal Head: Diabetic ulcer, present on admission. Wound bed has 70% dull red tissue, 30% yellow tissue. No odor, small yellow purulent drainage. Periwound intact, callused. Wound measures 1.9 cm x 2.5 cm x 0.2 cm. Recommend: Cleanse wounds with normal saline. Apply moisture barrier cream to man-wounds. Apply Venelex ointment to wound beds. Cover with non-adhesive 4x4 foam dressing(s). Wrap with Holly wrap. Perform wound care daily, and as needed for dressing soiling or dislodgement. 4. Right Dorsal Foot: Diabetic ulcer, present on admission. Wound bed has 100% brown eschar. No odor, no drainage. Periwound intact. Dry, stable. Wound measures 0.8 cm x 1.9 cm. Recommend: [place] site with Betadine daily. Wrap with same Holly wrap used in sites 2 and 3. Perform wound care daily, and as needed for dressing soiling or dislodgement. 5. Right Anterior Alberts: Area of dry scaly skin. No odor, scant serous drainage. Site measures 3.6 cm x 3.7 cm. Recommend: Cleanse wound with normal saline. Apply moisture barrier cream to man-wound. Apply Venelex ointment to wound bed. Cover with non-adhesive 4x4 foam dressing. Wrap with Holly wrap. Perform wound care daily, and as needed for dressing soiling or dislodgement. 6. Right Medial Calf: Venous insufficiency ulcer, present on admission. Wound bed has 90% yellow tissue, 10% dull pink tissue. No odor, small yellow purulent drainage. Periwound intact. Wound measures 3.2 cm x 3.5 cm. Recommend: Cleanse wound with normal saline. Apply moisture barrier cream to man-wound. Apply Venelex ointment to wound bed. Cover with non-adhesive 4x4 foam dressing. Wrap with Holly wrap. Perform wound care daily, and as needed for dressing soiling or dislodgement. 7. Left Dorsal Lateral Fifth Metatarsal Head: Diabetic ulcer, present on admission. Wound bed has 55% dull red tissue, 45% yellow tissue. No odor, scant yellow purulent drainage. Periwound intact, pink, callused. Wound measures 1.5 cm x 2.0 cm. Recommend: Cleanse wound with normal saline. Apply moisture barrier cream to man-wound. Apply Venelex ointment to wound bed. Cover with non-adhesive 4x4 foam dressing. Wrap with Holly wrap. Perform wound care daily, and as needed for dressing soiling or dislodgement. Recommend: Cleanse wounds with normal saline. Apply moisture barrier cream to man-wounds. Apply Venelex ointment to wound beds. Cover with 4x4 foam dressing. Perform wound care daily, and as needed for dressing soiling or dislodgement. Also recommend: Encourage and assist patient as needed with repositioning every 2 hours with pillow support and off-load pressure areas with pillows for pressure re-distribution. Offload, elevate and float bilateral heels with pillows. Perform skin care and monitor skin integrity Q shift. Use moisture barrier cream on buttocks and other moisture susceptible areas QID and as needed for soiling. Initiate low air-loss therapy.
[2020-11-19] MEDS: IBUPROFEN 200 MG TABLET PO SCH ×2 (16:13→21:08)
[2020-11-19 17:52] VITALS: BP_SYST 114
--- NOTE | 2020-11-19 17:53 | NUR ---
CLOSING NOTE PATIENT AWAKE IN BED, SITTING UP EATING DINNER. PATIENT ON 2LT NC, WITH NO LABORED BREATHING. PATIENT CURRENTLY DENIES PAIN OR DISCOMFORT. WOUND CARE PROVIDED AND BED LINEN CHANGED. IV IN PLACE AND IN TACT. SAFETY, FALL AND ASPIRATION PRECAUTIONS IN PLACE. CALL LIGHT IN REACH, BED IN LOWEST POSITION AND LOCKED AND RAILS ARE UP. ALL NEED MET THROUGHOUT SHIFT. WILL ENDORSE TO JUNIOR ART DIRECTOR.
--- NOTE | 2020-11-19 19:15 | NUR ---
OPENING NOTE REPORT RECEIVED FROM DAYSHIFT NURSE. PATIENT RECEIVED LYING IN BED, RESTING, NO S/S OF ACUTE DISTRESS. BREATHING EVEN AND UNLABORED, HOB RAISED, NASAL CANULA ATTACHED PROPERLY, ON 2L OF OXYGEN. IVF INFUSING WELL, IV SITE PATENT, NO SIGNS OF INFILTRATION OR INFECTION NOTED. BED ALARM ON. BED IS LOCKED AND AT LOWEST POSITION. WILL CONTINUE TO MONITOR.
[2020-11-19 20:00] VITALS: BP_SYST 127
[2020-11-19] MEDS: LORazepam 2 MG/ML VIAL IVP PRN (21:13)
[2020-11-20 00:05] VITALS: BP_SYST 120
[2020-11-20] MEDS: PIPERACILLIN/TAZO 2.25G/DEX-IS 50 ML IV SCH ×3 (00:28→12:22)
[2020-11-20] MEDS: HYDROcodone/ACETAMIN 10-325 MG TAB PO PRN (00:33)
--- NOTE | 2020-11-20 00:33 | NUR ---
ROUNDS/PAIN PATIENT COMPLAINING OF PAIN. PRN MEDICATION TO BE ADMINISTERED. WILL CONTINUE TO MONITOR.
--- NOTE | 2020-11-20 06:22 | NUR ---
CLOSING NOTE PATIENT IN BED, SLEEPING. NO S/S OF ACUTE DISTRESS NOTED. BREATHING EVEN AND UNLABORED. HOB RAISED. NASAL CANULA ATTACHED PROPERLY, ON 2L OF OXYGEN. IV ANTIBIOTIC INFUSING WELL. IV SITE PATENT, NO SIGNS OF INFILTRATION OR INFECTION NOTED. SKIN WARM AND DRY TO TOUCH, NO S/S OF HYPOGLYCEMIA NOTED. FEET ELEVATED WITH PILLOW. ALL NEEDS MET THROUGHOUT SHIFT. FALL, SAFETY PRECAUTIONS MAINTAINED THROUGHOUT SHIFT. WILL CONTINUE TO MONITOR UNTIL PATIENT CARE IS ENDORSED TO ONCOMING DAYSHIFT NURSE.
[2020-11-20 06:58] LABS: BASOPHILS % (AUTO) 0.4 % (0.0-2.0); EOSINOPHILS % (AUTO) 0.5 % (0.0-4.0); HEMATOCRIT 31.9 % (36-54); HEMOGLOBIN 10.1 g/dL (14.0-18.0); LYMPHOCYTES # (AUTO) 1.5 K/uL (1.0-5.5); LYMPHOCYTES % (AUTO) 18.2 % (20.5-51.5); MEAN CORPUSCULAR HEMOGLOBIN 26 pg (27-31); MEAN CORPUSCULAR HGB CONC 32 % (32-36); MEAN CORPUSCULAR VOLUME 82 fL (79.0-98.0); MONOCYTES # (AUTO) 0.9 K/uL (0.0-1.0); MONOCYTES % (AUTO) 10.5 % (1.7-9.3); NEUTROPHILS # (AUTO) 5.8 K/uL (1.8-7.7); NEUTROPHILS % (AUTO) 70.4 % (40.0-70.0); PLATELET COUNT (AUTO) 206 K/uL (130-430); RED BLOOD CELL COUNT(AUTO) 3.91 MIL/uL (4.2-6.2); RED CELL DISTRIBUTION WIDTH 18.5 % (9.0-15.0); WHITE BLOOD COUNT (AUTO) 8.3 K/uL (4.8-10.8)
--- NOTE | 2020-11-20 07:30 | NUR ---
rn opening note report was endorsed by night nurse. patient is awake and alert sitting up in bed. patient educated solar installation helper light, call light is with patient. patient is close to nurses station. patient has no complaints at this time. patient has all safety precautions in place.
[2020-11-20 07:47] LABS: BILIRUBIN,DIRECT 0.3 mg/dL (0.0-0.3); CALCIUM 8.4 mg/dL (8.4-11.0); CREATININE 1.08 mg/dL (0.55-1.30); PHOSPHORUS 4.2 mg/dL (2.7-4.5); POTASSIUM 4.5 mmol/L (3.5-5.1); TOTAL BILIRUBIN 0.5 mg/dL (0.0-1.0)
[2020-11-20] MEDS: ENOXAPARIN SODIUM 40 MG/0.4 ML SYRINGE SUBCUT SCH (08:26)
[2020-11-20 08:28] LABS: ERYTHROCYTE SEDIMENTATION RATE 15 MM/HR (0-15)
[2020-11-20] MEDS: CARVEDILOL 3.125 MG TABLET (COREG) PO SCH (08:28)
[2020-11-20] MEDS: FUROSEMIDE 20 MG TABLET PO SCH (08:29)
[2020-11-20] MEDS: IBUPROFEN 200 MG TABLET PO SCH ×2 (08:29→15:26)
[2020-11-20 08:30] VITALS: BP_SYST 127
--- NOTE | 2020-11-20 08:32 | NUR ---
medication Patients scheduled medication given per order. patient is awake and alert sitting up in bed. patient educated inclusion teacher light, call light is with patient. patient ate all breakfast. patient has no other needs at this time. patient stated pain is usually controlled by scheduled pain medication.
[2020-11-20] MEDS ORDERED: LIDOCAINE PATCH 5% 1 EA TP SCH (09:00)
--- NOTE | 2020-11-20 09:16 | NUR ---
Nutrition F/U Admitting Diagnosis: Sepsis and pneumonia Medical History Comment: PMH: homeless, DM, obesity, and COPD per physician notes 11/20 MD notes: Leukocytosis, Anemia, MAGALIE, CKD, Pleural effusion, CHF, cellulitis, Lymphedema of BLE, Cholelithiasis, Sepsis-improved. SARS-CoV-2 Ag (Rapid) Negative 11/14 Subjective Information: Pt was seen in bed, Glucerna bottle at bedside, unopened. Pt reported that he did not drink ONS this morning. Pt also reported that he is feeling awesome and that he has been tolerating, eating 100% of his meals. During this visit, pt also requested for Glucerna shakes to be discontinued and verbalized food preferences. RD noted in [employer]. Pt is pending SNF placement, on 2L NC, abdomen is soft and nondistended w/ active bowel sounds, last BM 11/20 x1. Preston scale: 18. Per mission assessment specialist 11/19: pt w/ wound to distal right foot, left foot, right 2nd toe, right big toe and right heel, pending configuration specialist assessment, pt w/ non-pitting generalized edema. PO intake records incomplete, but average of 88% of 11 meals since admission. Pt consumes mostly 75-100% of meals. Current diet order remains adequate and appropriate. Current Diet Order/Nutrition Support: CCHO, cardiac, chopped diet, Glucerna shake BID x 5 days Pertinent Medications: piperacillin/tazobactam IV, SSI, Lovenox, Lasix, Zofran Pertinent Labs: 11/20: Na 142WNL, K 4.5WNL, BG 123H, POC BG 122H, BUN 29H, Cre 1.08WNL. Height: 5 feet, 11.00 inches Weight: 191 pounds/ 86.370899 kilograms (11/15) -no new weight as of 11/20. Body Mass Index: 26.64 kg/m2 Usual Weight: 165 lbs %IBW: 111 [place]/Adjusted Body Weight: 172#/78 kg Recent Weight Change: Yes - possible 26# wt gain d/t fluid retention per pt report Estimated Energy Expenditure (kcals/day) 2254-0936 kcal/day (30-35 kcal/kg CBW d/t sepsis) Estimated Protein Required (g/day) 131-174 gm/day (1.5-2 gm/kg CBW d/t sepsis) Estimated Fluid Required (l/day) 2.6-3 L/day (1 ml/kcal/day for maintenance) Problem/Etiology/Signs/Symptoms Increased nutritional needs related to metabolic demands as evidenced by estimated nutritional requirements for sepsis. (*sepsis-improved per MD) Suspected suboptimal nutrient intakes related to socioeconomic status as evidenced by homelessness. (*ongoing) Chewing/swallowing difficulty related to mastication of foods as evidenced by pt report. (*ongoing) Expected Outcomes/Goals - Monitor appetite and PO intakes w/ goal of pt meeting at least 75% of estimated nutritional needs, labs trending WNL, normal GI function, and skin integrity/wt maintenance Dietitian Recommendations * Continue CCHO, cardiac, chopped diet * Discontinue Glucerna BID per pt request. * Moist foods/provide extra sauces/gravies TID, adhere to food preferences Follow Up Mod Risk: F/U in 3-5 days Addendum: 11/20/20 at [address] Correction: Estimated Fluid Required (L/day) per MD (CKD/CHF) MONICA GUARDADO
--- NOTE | 2020-11-20 09:24 | NUR ---
Dietitian Recommendations * Continue CCHO, cardiac, chopped diet * Discontinue Glucerna BID per pt request. * Moist foods/provide extra sauces/gravies TID, adhere to food preferences Please see Nutrition F/U note for details. GEO, RD
[2020-11-20 09:27] LABS: C-REACTIVE PROTEIN QUANT 7.5 mg/dL (0-0.5)
[2020-11-20 12:00] VITALS: BP_SYST 108
[2020-11-20] MEDS: INSULIN REGULAR, HUMAN 100 UNITS/ML, 10 ML VIAL (humuLIN R) SUBCUT PRN (12:26)
--- NOTE | 2020-11-20 12:31 | NUR ---
MEDICATION/ACCU CHECK PATIENTS ACCU CHECK DONE, COVERAGE GIVEN PER ORDER.PATIENT IS CURRENTLY EATING LUNCH IN BED. PATIENT SCHEDULED ANTIBIOTIC ALSO GIVEN PER ORDER. PATIENT EDUCTED ON PLAN OF CARE. PATIENT ALSO EDUCATED LABORER RAGS LIGHT FOR ASSISTANCE. PATIENT HAS NO OTHER NEEDS AT THIS TIME. CALL LIGHT IS WITH PATIENT. PATIENT IS CLOSE TO NURSE STATION.
--- NOTE | 2020-11-20 14:59 | NUR ---
Patient accepted at [facility] room 101A. Number for report [phone]. Requested transportation by [facility]-[phone]-reference #[id number]. Patient to be transported after 5 PM by facility request. discharge disposition [id number]
--- NOTE | 2020-11-20 15:00 | NUR ---
discharge Received order ok to discharge patient.
--- NOTE | 2020-11-20 15:35 | NUR ---
WOUND CARE PATIENTS WOUND CARE DONE PER ORDER. PATIENTS SCHEDULED MEDICATION GIVEN PER ORDER. PATIENT IS AWAKE AND ALERT SITTING UP IN BED. NO SING OF ANY DISTRESS, BREATHING IS EQUAL AND NON LABORED. PATIENT EDUCATED NET WEB DEVELOPER LIGHT, AND PLAN OF CARE CALL LIGHT IS WITH HIM NO OTHER NEEDS AT THIS TIME.
--- NOTE | 2020-11-20 16:02 | NUR ---
SS notes WIRELESS MANAGER received a referral from Dr. Cleve Garcia MD dated 11/14 at 2244. This was WIRELESS MANAGER's first day on shift since 11/14 at approx. 1600. WIRELESS MANAGER met with pt. who had been asleep prior to WIRELESS MANAGER meeting pt. at bedside. WIRELESS MANAGER asked pt. if he knew he was going to be leaving. Pt. stated he did not know. Pt. appeared very tired and lethargic. WIRELESS MANAGER asked pt. to confirm if he was homeless. Pt. stated he was. Pt accepted WIRELESS MANAGER's homeless resources. Pt. was not able to contribute to this interview in any meaningful way. WIRELESS MANAGER spoke to YUSRA Guzmán who confirmed pt. has [facility]. WIRELESS MANAGER will fill out a [facility] application for a Full Service Partnership program to assist with homeless with a DMH diagnosis. WIRELESS MANAGER filled out and faxed over the application for FSP to [facility], [place], [place] [phone]. WIRELESS MANAGER will remain available as needed.
--- NOTE | 2020-11-20 16:21 | NUR ---
report was endored to nurse at [facility] spoke with ade. patient is aware of discharge, clothes provided to patient. to wear to snf. informed that he will be out of here at 1700. the snf states that they will have dinner for him with insulin.
[2020-11-20 16:25] VITALS: BP_SYST 122
[2020-11-20 17:06] VITALS: BP_SYST 122
--- NOTE | 2020-11-20 17:54 | NUR ---
Discharge Patient is discharged per order. Patient is awake and alert, all belongings sent with him. Patient's ID band removed,placed new id band with name and .Patient's iv catheter removed, iv catheter intact.Patient states has no one to inform of transfer. Patient has no other needs at this time. All paper work was given to transporter.
== END 2020-11-20 17:54 | DRG 720 ==
LOC: SED 15:58 → STU 19:45
PROVIDERS: ADMIT Preventive Medicine Preventive Medicine/Occupational Environmental Medicine; ATTEND Preventive Medicine Preventive Medicine/Occupational Environmental Medicine
DX: A41.9 Sepsis, unspecified organism (principal); J96.01 Acute respiratory failure with hypoxia; I50.43 Acute on chronic combined systolic (congestive) and diastolic (congestive) heart failure; N17.9 Acute kidney failure, unspecified; E11.22 Type 2 diabetes mellitus with diabetic chronic kidney disease; E83.51 Hypocalcemia; I08.1 Rheumatic disorders of both mitral and tricuspid valves; E11.65 Type 2 diabetes mellitus with hyperglycemia; K80.10 Calculus of gallbladder with chronic cholecystitis without obstruction; E87.5 Hyperkalemia; E87.1 Hypo-osmolality and hyponatremia; N18.9 Chronic kidney disease, unspecified; B19.20 Unspecified viral hepatitis C without hepatic coma; D64.9 Anemia, unspecified; E66.9 Obesity, unspecified; E83.52 Hypercalcemia; E88.09 Other disorders of plasma-protein metabolism, not elsewhere classified; F15.10 Other stimulant abuse, uncomplicated; M79.7 Fibromyalgia; I27.21 Secondary pulmonary arterial hypertension; J44.9 Chronic obstructive pulmonary disease, unspecified; Z20.822 Contact with and (suspected) exposure to COVID-19; I27.81 Cor pulmonale (chronic); K76.9 Liver disease, unspecified; J44.0 Chronic obstructive pulmonary disease with (acute) lower respiratory infection; K70.9 Alcoholic liver disease, unspecified; K74.60 Unspecified cirrhosis of liver; L03.115 Cellulitis of right lower limb; L03.116 Cellulitis of left lower limb; R79.1 Abnormal coagulation profile; Z59.0 Homelessness; Z79.01 Long term (current) use of anticoagulants; Z68.26 Body mass index [BMI] 26.0-26.9, adult
CPT/HCPCS: 36415; 71045; 76700-TC; 80048; 80053; 80074; 80076; 80307; 81000; 82009; 82150; 82550; 82553; 82728; 82962; 83605; 83690; 83735; 83880; 83970; 84100; 84443; 84484; 85007; 85025; 85027; 85610-TC; 85651-TC; 85730-TC; 86140; 87040-TC; 87070-TC; 87205-TC; 93005; 93306; 93970; 96361; 96374; 96375; 97116-GP; 97163-GP; 97530-GP; 99285; G0378; G0482; J1650; J1815; J1940; J1956; J2060; J2405; J2543; J3475; J7050

== ENCOUNTER 2020-12-22 05:11 | Inpatient (IN) | payer MEDICAID, SELFPAY ==
[~2020-12-22] VITALS: Ht 180.3 cm; Wt 107.5 kg
[2020-12-22 05:11] VITALS: BP_SYST 113
[~2020-12-22 05:11] MED LIST: FURO-150 PO; GLU500 PO
--- NOTE | 2020-12-22 07:00 | NUR ---
ER DR. WOLFF EXAMINING PT
--- NOTE | 2020-12-22 07:30 | NUR ---
Placed in room 3 . Placed on alarm security or surveillance monitor, blood pressure machine and pulse oximeter. To gown for exam. Side rails up.
--- NOTE | 2020-12-22 07:35 | NUR ---
PT CORAL FROM [facility], PT STATES HE CALLED FOR AN AMBULANCE BECAUSE HE WAS FEELING SOB. PT PRESENTS AAOX4, V/S STABLE O2 97% ON RA. PT HAS A PRODUCTIVE COUGH
[2020-12-22 08:14] LABS: BASOPHILS # (AUTO) 0.1 K/uL (0.0-0.2); BASOPHILS % (AUTO) 1.1 % (0.0-2.0); EOSINOPHILS # (AUTO) 0.1 K/uL (0.0-0.4); EOSINOPHILS % (AUTO) 1.2 % (0.0-4.0); HEMATOCRIT 30.4 % (36-54); HEMOGLOBIN 9.5 g/dL (14.0-18.0); LYMPHOCYTES # (AUTO) 1.2 K/uL (1.0-5.5); LYMPHOCYTES % (AUTO) 23.7 % (20.5-51.5); MEAN CORPUSCULAR HEMOGLOBIN 26 pg (27-31); MEAN CORPUSCULAR HGB CONC 31 % (32-36); MEAN CORPUSCULAR VOLUME 82 fL (79.0-98.0); MONOCYTES # (AUTO) 0.4 K/uL (0.0-1.0); MONOCYTES % (AUTO) 8.5 % (1.7-9.3); NEUTROPHILS # (AUTO) 3.3 K/uL (1.8-7.7); NEUTROPHILS % (AUTO) 65.5 % (40.0-70.0); PLATELET COUNT (AUTO) 227 K/uL (130-430); RED BLOOD CELL COUNT(AUTO) 3.69 MIL/uL (4.2-6.2); RED CELL DISTRIBUTION WIDTH 19.8 % (9.0-15.0)
[2020-12-22 08:28] LABS: INR 1.1 (0.80-1.20); PROTHROMBIN TIME 11.9 SECS (9.5-12.5)
[2020-12-22 08:30] LABS: CALCIUM 8.4 mg/dL (8.4-11.0); CREATININE 1.37 mg/dL (0.55-1.30); POTASSIUM 4.1 mmol/L (3.5-5.1)
[2020-12-22 08:49] LABS: ALBUMIN 2.6 g/dL (3.4-4.8); TOTAL BILIRUBIN 0.5 mg/dL (0.0-1.0)
--- NOTE | 2020-12-22 09:17 | NUR ---
ADMISSION ORDERS RECEIVED FROM DR. ARRIAGA
--- NOTE | 2020-12-22 09:30 | NUR ---
# 20 gauge angiocath placed to RAC. Use of asceptic technique. Opsite placed over site. Blood return noted. Blood for lab drawn from site. Flushed with 10 cc of normal saline. No evidence of infiltration noted. Patient tolerated well.
[2020-12-22] MEDS ORDERED: FURO-150 PO (09:56)
[2020-12-22] MEDS ORDERED: DOCU-156 PO (09:56)
[2020-12-22] MEDS ORDERED: METF1000 PO (09:56)
[2020-12-22] MEDS ORDERED: GLIM2TAB PO (09:56)
[2020-12-22] MEDS ORDERED: ACET-73 PO (09:56)
[2020-12-22] MEDS ORDERED: MELA5TAB12 PO (09:56)
[2020-12-22] MEDS ORDERED: SENN8.6T19 PO (09:56)
[2020-12-22] MEDS ORDERED: MOM PO (09:56)
[2020-12-22] MEDS ORDERED: ACET325T PO (09:56)
[2020-12-22] MEDS ORDERED: ALBMDI INH (09:56)
[2020-12-22] MEDS ORDERED: SSREG SUBCUT (09:56)
--- NOTE | 2020-12-22 09:56 | NUR ---
Medication reconciliation completed with information provided by STEPH GUY. Any prior medication reconciliation on file was reviewed and corrected.
--- NOTE | 2020-12-22 10:30 | NUR ---
PT RESTING IN BED, NO S/SX OF DISTRESS, V/S STABLE
--- NOTE | 2020-12-22 11:31 | NUR ---
Patient will be admitted to care of DR. DONOHUE. Admitted to TELE unit. Will go to room 110A. Belongings list completed. Complete and up to date summary report printed. SBAR report to be given at bedside with opportunity for questions.
--- NOTE | 2020-12-22 11:34 | NUR ---
PT PROVIDED WITH SNACK
--- NOTE | 2020-12-22 11:45 | NUR ---
ADMISSION NOTE Received patient from ER via gurney. Patient admitted with diagnosis of . Patient is awake, alert, oriented X 4. Patient oriented to hospital room, call light, toileting, pain management and safety-teach back done. Personal belongings checked and Belongings List documented. Call light within reach.
[2020-12-22 11:50] VITALS: BP_SYST 114
--- NOTE | 2020-12-22 12:33 | NUR ---
Wound care and pictures done of all wounds. Wound consult ordered. Will monitor.
[2020-12-22] MEDS ORDERED: INSULIN REGULAR, HUMAN 100 UNITS/ML, 10 ML VIAL (humuLIN R) SUBCUT PRN (13:15)
[2020-12-22] MEDS ORDERED: ACETAMINOPHEN 325 MG TABLET PO PRN (13:15)
[2020-12-22] MEDS ORDERED: ACETAMINOPHEN 500 MG TABLET PO PRN (13:15)
[2020-12-22] MEDS ORDERED: ONDANSETRON HCL 4 MG/2 ML VIAL IVP PRN (13:15)
[2020-12-22] MEDS ORDERED: LORazepam 2 MG/ML VIAL IVP PRN (13:15)
[2020-12-22] MEDS ORDERED: MILK OF MAGNESIA 30 ML UDC PO PRN (13:15)
--- NOTE | 2020-12-22 13:18 | NUR ---
CONSULTATION PAGED/CALLED Reason for Consultation: [] MAGALIE Person Who was Notified: [] KIYA Consulting Physician: [] DR VALDEZ, N Three Dimensional Art Instructor Specialty: [] NEPHRO Ordering Physician: [] DR Roxanne ARRIAGA
--- NOTE | 2020-12-22 13:21 | NUR ---
CONSULTATION PAGED/CALLED Reason for Consultation: [] CHF Person Who was Notified: [] NADINE Consulting Physician: [] DR Opal ARRIAGA Scientific Linguist Specialty: [] CARDIOLOGY Ordering Physician: [] DR Roxanne ARRIAGA
[2020-12-22] MEDS ORDERED: GLUCOSE (DEXTROSE) ORAL GEL -Adults PO PRN (13:45)
[2020-12-22] MEDS ORDERED: D5W 1,000 ML IV PRN (13:45)
[2020-12-22] MEDS ORDERED: DEXTROSE 50%-WATER 50 ML DISP.SYRIN IVP PRN (13:45)
[2020-12-22] MEDS: NORMAL SALINE 5 ML DISP.SYRIN IVF SCH ×2 (14:00→22:03)
[2020-12-22] MEDS ORDERED: NORMAL SALINE 5 ML DISP.SYRIN IVF SCH (14:00)
[2020-12-22 14:23] VITALS: BP_SYST 114
[2020-12-22 16:00] VITALS: BP_SYST 133
--- NOTE | 2020-12-22 16:02 | NUR ---
RN note Patient is resting in bed. On 2 L nasal cannula, states that he feels short of breath. O2 sat at 100%. Vitals are stable. Will monitor.
[2020-12-22] MEDS: ACETAMINOPHEN 500 MG TABLET PO PRN (16:59)
[2020-12-22] MEDS: metFORMIN HCL 500 MG TABLET PO SCH (17:12)
[2020-12-22] MEDS: INSULIN REGULAR, HUMAN 100 UNITS/ML, 10 ML VIAL (humuLIN R) SUBCUT PRN (17:15)
--- NOTE | 2020-12-22 18:37 | NUR ---
Closing note Patient is sitting up in bed. On 2 L nasal cannula and tolerating well with no signs of shortness of breath noted. IV is patent, saline locked. Bed locked and in lowest position. Call light within reach. All needs met throughout shift. Will endorse to night nurse.
[2020-12-22 19:00] VITALS: BP_SYST 142
[2020-12-22 20:00] VITALS: BP_SYST 142
[2020-12-22] MEDS: MELATONIN 5 MG TABLET PO SCH (21:00)
[2020-12-22] MEDS: DOCUSATE SODIUM 100 MG CAPSULE PO SCH (21:45)
[2020-12-22] MEDS: SENNOSIDES 8.6 MG TABLET PO SCH (21:46)
[2020-12-22] MEDS: ALBUTEROL SULFATE 0.083% 2.5 MG/3 ML VIAL.NEB INH PRN (23:36)
[2020-12-23] VITALS: BP_SYST 135
[2020-12-23] MEDS: ACETAMINOPHEN 500 MG TABLET PO PRN (04:57)
[2020-12-23] MEDS: NORMAL SALINE 5 ML DISP.SYRIN IVF SCH ×3 (05:02→20:55)
[2020-12-23] MEDS: ALBUTEROL SULFATE 0.083% 2.5 MG/3 ML VIAL.NEB INH PRN ×4 (05:47→22:00)
--- NOTE | 2020-12-23 06:54 | NUR ---
Nutrition Update Preston Scale 14 noted. Pt admitted for CHF Diet: Cardiac BMI: 33.1 kg/m2 RD to follow per nutrition care standards.
[2020-12-23 08:00] VITALS: BP_SYST 111
--- NOTE | 2020-12-23 08:00 | NUR ---
Initial Note Patient asleep in bed, wakes to verbal stimuli. Alert and oriented x 4. Requesting cough medicine and breathing treatments to be every 4 hours. Will page MD. No acute pain or distress. Bed locked in lowest position with alarm on. Call light left within reach.
[2020-12-23] MEDS: metFORMIN HCL 500 MG TABLET PO SCH ×2 (08:25→17:10)
[2020-12-23] MEDS: FUROSEMIDE 20 MG TABLET PO SCH (08:25)
[2020-12-23] MEDS: DOCUSATE SODIUM 100 MG CAPSULE PO SCH ×2 (08:25→20:52)
[2020-12-23] MEDS: GLIMEPIRIDE 2 MG TABLET PO SCH (08:25)
[2020-12-23 09:12] LABS: BASOPHILS % (AUTO) 0.7 % (0.0-2.0); EOSINOPHILS % (AUTO) 0.5 % (0.0-4.0); HEMATOCRIT 28.9 % (36-54); HEMOGLOBIN 9.1 g/dL (14.0-18.0); LYMPHOCYTES # (AUTO) 1.4 K/uL (1.0-5.5); LYMPHOCYTES % (AUTO) 22.5 % (20.5-51.5); MEAN CORPUSCULAR HEMOGLOBIN 26 pg (27-31); MEAN CORPUSCULAR HGB CONC 31 % (32-36); MEAN CORPUSCULAR VOLUME 84 fL (79.0-98.0); MONOCYTES # (AUTO) 0.6 K/uL (0.0-1.0); MONOCYTES % (AUTO) 9.3 % (1.7-9.3); NEUTROPHILS # (AUTO) 4.1 K/uL (1.8-7.7); PLATELET COUNT (AUTO) 208 K/uL (130-430); RED BLOOD CELL COUNT(AUTO) 3.44 MIL/uL (4.2-6.2); WHITE BLOOD COUNT (AUTO) 6.1 K/uL (4.8-10.8)
[2020-12-23 09:41] LABS: ALBUMIN 2.6 g/dL (3.4-4.8); CALCIUM 8.2 mg/dL (8.4-11.0); CREATININE 1.46 mg/dL (0.55-1.30); PHOSPHORUS 4.1 mg/dL (2.7-4.5); POTASSIUM 4.7 mmol/L (3.5-5.1); TOTAL BILIRUBIN 0.6 mg/dL (0.0-1.0)
--- NOTE | 2020-12-23 12:00 | NUR ---
Notes Patient sitting up in bed about to eat lunch. No pain or distress. Bed locked in lowest position. Call light within reach, encouraged to call.
--- NOTE | 2020-12-23 12:00 | NUR ---
Notes Patient awake and watching TV in chair, no distress or pain. Transfers by self. Oxygen 2 L via N/C. Bed locked in lowest position and call light within reach, encouraged to call.
[2020-12-23 13:01] VITALS: BP_SYST 113
[2020-12-23] MEDS: guaiFENesin/DEXTROMETHORPHAN 10 ML UDC PO PRN ×3 (13:18→21:02)
--- NOTE | 2020-12-23 15:53 | NUR ---
DISCHARGE PLANNING Order for dc planning snf for PT & wound care. Spoke with pt at bedside & agreeable with snf. Came from [facility] for short term but was not happy at the facility and prefers any contracted facility other than [facility]. Would prefer [facility] but anywhere that accepts him would be ok. Is agreeable back to [facility] if no other contracted SNF accepts him. Called & spoke with Shakira at [facility], ph [phone] opt #1, no assigned CM, states to fax dc planning order/pt info to fax [phone]. That is the dc planning fax & someone will call to f/u, faxed order/pt info. PT Eval & Wound care consult still pending & will need to be faxed when avail.
--- NOTE | 2020-12-23 16:00 | NUR ---
Notes Patient in bed watching TV, no signs or symptoms of distress. States just used the restroom. All needs met at this time. Call light in reach, encouraged to call. Bed in lowest position.
[2020-12-23 18:33] VITALS: BP_SYST 109
--- NOTE | 2020-12-23 18:55 | NUR ---
Closing Note Patient lying in bed with HOB elevated 45 degrees, watching TV. No pain or distress noted at this time. Call light left within reach and bed locked in lowest position. All needs met at this time. Will endorse to night nurse.
--- NOTE | 2020-12-23 19:10 | NUR ---
Received beside report. pt sitting on edge of bed. rr even and unlabored on 2l nc. pt denies chest pain or pressure. bed rails upx2. pt has brp. call light within reach. bed locked in lowest position. will continue to monitor.
[2020-12-23] MEDS: SENNOSIDES 8.6 MG TABLET PO SCH (20:52)
[2020-12-23] MEDS: MELATONIN 5 MG TABLET PO SCH (20:53)
[2020-12-24] MEDS: ACETAMINOPHEN 500 MG TABLET PO PRN (00:21)
[2020-12-24 00:22] VITALS: BP_SYST 108
[2020-12-24] MEDS: NORMAL SALINE 5 ML DISP.SYRIN IVF SCH ×3 (06:30→21:57)
[2020-12-24] MEDS: ALBUTEROL SULFATE 0.083% 2.5 MG/3 ML VIAL.NEB INH PRN ×4 (06:54→21:15)
[2020-12-24 07:43] LABS: CALCIUM 8.6 mg/dL (8.4-11.0); CREATININE 1.29 mg/dL (0.55-1.30); PHOSPHORUS 4.3 mg/dL (2.7-4.5); POTASSIUM 4.6 mmol/L (3.5-5.1)
[2020-12-24 07:55] LABS: BASOPHILS % (AUTO) 0.7 % (0.0-2.0); EOSINOPHILS # (AUTO) 0.1 K/uL (0.0-0.4); EOSINOPHILS % (AUTO) 1.3 % (0.0-4.0); HEMATOCRIT 28.9 % (36-54); HEMOGLOBIN 9.1 g/dL (14.0-18.0); LYMPHOCYTES # (AUTO) 1.4 K/uL (1.0-5.5); LYMPHOCYTES % (AUTO) 24.8 % (20.5-51.5); MEAN CORPUSCULAR HEMOGLOBIN 26 pg (27-31); MEAN CORPUSCULAR HGB CONC 32 % (32-36); MEAN CORPUSCULAR VOLUME 83 fL (79.0-98.0); MONOCYTES # (AUTO) 0.7 K/uL (0.0-1.0); NEUTROPHILS # (AUTO) 3.3 K/uL (1.8-7.7); NEUTROPHILS % (AUTO) 60.2 % (40.0-70.0); PLATELET COUNT (AUTO) 196 K/uL (130-430); RED BLOOD CELL COUNT(AUTO) 3.49 MIL/uL (4.2-6.2); RED CELL DISTRIBUTION WIDTH 19.5 % (9.0-15.0); WHITE BLOOD COUNT (AUTO) 5.5 K/uL (4.8-10.8)
[2020-12-24 08:00] VITALS: BP_SYST 112
[2020-12-24] MEDS: GLIMEPIRIDE 2 MG TABLET PO SCH (08:17)
[2020-12-24] MEDS: metFORMIN HCL 500 MG TABLET PO SCH ×2 (08:18→17:18)
[2020-12-24] MEDS: DOCUSATE SODIUM 100 MG CAPSULE PO SCH ×2 (08:18→21:55)
[2020-12-24] MEDS: FUROSEMIDE 20 MG TABLET PO SCH (08:19)
[2020-12-24] MEDS: INSULIN REGULAR, HUMAN 100 UNITS/ML, 10 ML VIAL (humuLIN R) SUBCUT PRN (11:13)
--- NOTE | 2020-12-24 11:59 | NUR ---
Dietitian Recommendations *[facility], Glucera BID, Cesar BID. Modular will provide additional 636 kcal, 25gm protein daily. Please see Nutritional Assessment for details. GEO, RD
--- NOTE | 2020-12-24 13:09 | NUR ---
alert, oriented, and very appropriate. appetite all meals, 100%, the patient has no idea to control the food he is eating, continues to ask for more food, despite the fact just finished meals. bs prior to lunch today 201, got covered with 4units REG all wounds, both L and R dressings changed , wounds look very dry, clean no sacral wound noted. secondary to all wounds, using urinal, except bm, he walked to bathroom , himelf. No complaint of any discomfort, nor pain. on 2liter nc, asked neb tx as needed
--- NOTE | 2020-12-24 15:42 | NUR ---
1430 walked with PT in the hallway, on the way back to his room, claimed his blood sugar went low, as evidenced by sweatiness, shaking, and very weak. BS taken right away, 47 ate 100% lunch, snacks offered, and d50, one ampule administered will recheck bs one hour later.
[2020-12-24 18:02] VITALS: BP_SYST 100
--- NOTE | 2020-12-24 19:05 | NUR ---
received bedside report. pt sitting up in bed. pt aox4 able to make needs known. rr even and unlabored on 2l nc. call light within reach. bed locked in lowest position. will continue to monitor.
[2020-12-24 20:00] VITALS: BP_SYST 111
[2020-12-24] MEDS: guaiFENesin/DEXTROMETHORPHAN 10 ML UDC PO PRN (21:56)
[2020-12-24] MEDS: MELATONIN 5 MG TABLET PO SCH (21:56)
[2020-12-24] MEDS: SENNOSIDES 8.6 MG TABLET PO SCH (21:56)
[2020-12-25 00:15] VITALS: BP_SYST 133
--- NOTE | 2020-12-25 00:52 | NUR ---
pt in bed resting. rr even and unlabored on 2l nc. pt phone charged at nursing station. all needs meet at this time. call light within reach. bed locked in lowest position. will continue to monitor.
[2020-12-25] MEDS: NORMAL SALINE 5 ML DISP.SYRIN IVF SCH ×2 (06:25→14:00)
[2020-12-25 06:35] LABS: BASOPHILS % (AUTO) 0.8 % (0.0-2.0); EOSINOPHILS # (AUTO) 0.1 K/uL (0.0-0.4); EOSINOPHILS % (AUTO) 1.4 % (0.0-4.0); HEMATOCRIT 29.8 % (36-54); HEMOGLOBIN 9.4 g/dL (14.0-18.0); LYMPHOCYTES # (AUTO) 1.2 K/uL (1.0-5.5); LYMPHOCYTES % (AUTO) 23.4 % (20.5-51.5); MEAN CORPUSCULAR HEMOGLOBIN 26 pg (27-31); MEAN CORPUSCULAR HGB CONC 32 % (32-36); MEAN CORPUSCULAR VOLUME 83 fL (79.0-98.0); MONOCYTES # (AUTO) 0.5 K/uL (0.0-1.0); MONOCYTES % (AUTO) 9.6 % (1.7-9.3); NEUTROPHILS # (AUTO) 3.4 K/uL (1.8-7.7); NEUTROPHILS % (AUTO) 64.8 % (40.0-70.0); PLATELET COUNT (AUTO) 204 K/uL (130-430); RED BLOOD CELL COUNT(AUTO) 3.61 MIL/uL (4.2-6.2); RED CELL DISTRIBUTION WIDTH 20.2 % (9.0-15.0); WHITE BLOOD COUNT (AUTO) 5.3 K/uL (4.8-10.8)
[2020-12-25 06:51] LABS: CALCIUM 8.5 mg/dL (8.4-11.0); CREATININE 1.15 mg/dL (0.55-1.30); POTASSIUM 4.5 mmol/L (3.5-5.1)
--- NOTE | 2020-12-25 07:02 | NUR ---
power outage. checked on patient. pt in bed resting in no distress.
[2020-12-25 08:14] VITALS: BP_SYST 123
[2020-12-25] MEDS: FUROSEMIDE 20 MG TABLET PO SCH (08:59)
[2020-12-25] MEDS: GLIMEPIRIDE 2 MG TABLET PO SCH (09:00)
[2020-12-25] MEDS: DOCUSATE SODIUM 100 MG CAPSULE PO SCH (09:00)
[2020-12-25] MEDS ORDERED: FUROSEMIDE 40 MG/4 ML VIAL IVP ONE (09:15)
[2020-12-25] MEDS ORDERED: METOPROLOL SUCCINATE 25 MG TAB.SR.24H (TOPROL XL) PO ONE (09:30)
--- NOTE | 2020-12-25 09:38 | NUR ---
DISCHARGE PLANNING Order to dc to SNF. Return call from Janette at [facility], ph [phone] fax [phone], faxed PT notes as requested. Faxed referral to [facility] in case no other SNF accepts. Addendum: 12/25/20 at 1538 by Faith Copeland RN Per Janette, pt not meeting criteria for SNF, pt to go to SNF as fdc. Called & spoke with Marisa at [facility], ph [phone], pt was fdc there & will accept back today to room 107B, prefer after 7pm. Received call from Ange at [facility], ph [phone], she is now pt's CM Preferred as pt is now cappitated to [facility]. Aware pt is being dc'd back to [facility], no need to transfer to [facility], will look into transportation. Spoke with pt at bedside & updated, is agreeable with discharge back to [facility] today. Updated pt's nurse, arranging for 730pm cigar packer and picker per insurance. Received call from Davy with transportation at [facility],ph [phone], is setting up transportation for 730pm. Will call [facility] with transportation name & ph#. packet [facility]. [facility], room 107B, report ph [phone] Addendum: 12/25/20 at 1546 by Faith Copeland RN Received call back from Davy at [facility] [employer] [facility], that [employer] is the one for transportation on pt. Called [employer], ph [phone] #4, & set up [employer] with request for 730pm, will call nsg station with name & time of transportation. Addendum: 12/25/20 at 1611 by Faith Copeland RN Received call from [employer], [employer] will be picking up the pt at 730pm, cannot give the ph # for transportation company as it their policy.
[2020-12-25] MEDS ORDERED: METO-540 PO (13:10)
--- NOTE | 2020-12-25 13:45 | NUR ---
CONSULTATION PAGED/CALLED Reason for Consultation: PLEURAL EFFUSION Person Who was Notified: JOVANNY Consulting Physician: KATHY Tower Attendant Specialty: PULMO Ordering Physician: BART
[2020-12-25 14:55] VITALS: BP_SYST 112
[2020-12-25 15:29] VITALS: BP_SYST 123
[2020-12-25] MEDS: guaiFENesin/DEXTROMETHORPHAN 10 ML UDC PO PRN (16:24)
[2020-12-25 18:05] VITALS: BP_SYST 134
--- NOTE | 2020-12-25 18:09 | NUR ---
alert, oriented, aware he is going back to [facility], agreeable Report given to prem, at the facility, room 107 B, all questions answered to satisfaction. expected to be picked up at 1930, by [employer], stacy made aware to follow through
--- NOTE | 2020-12-25 18:30 | NUR ---
1835, on December 24, discharge to SNF when bed available, order written by attending, dr Carias, A 12/25 order for pulmonary implementation consultant, Agnieszka Hannah. the attending, left message to clarify orders. Patient is slated to leave this evening for [facility]
--- NOTE | 2020-12-25 18:35 | NUR ---
Pulmonary consult cancelled , and patient is slated to go back to SNF when ambulance arrives.
--- NOTE | 2020-12-25 19:47 | NUR ---
D/C Patient Patient given medication reconciliation form and D/C instructions. Exit Care provided. Patient verbalized understanding. discussed with patient the results and treatment provided. Ambulatory with assist for discharge to [facility]. Patient in stable condition, ID band removed. IV catheter removed, intact and dressing applied, no active bleeding. All belongings sent with patient.
[2020-12-25] MEDS ORDERED: FUROSEMIDE 40 MG/4 ML VIAL IVP SCH (21:00)
[2020-12-26] MEDS ORDERED: METOPROLOL SUCCINATE 25 MG TAB.SR.24H (TOPROL XL) PO SCH (09:00)
[2020-12-26 11:36] LABS: URINE SODIUM, RANDOM 39 mmol/L (40-220)
== END 2020-12-25 19:47 | DRG 194 ==
LOC: SED 05:11 → STU 09:18
PROVIDERS: ADMIT Preventive Medicine Preventive Medicine/Occupational Environmental Medicine; ATTEND Preventive Medicine Preventive Medicine/Occupational Environmental Medicine
DX: I13.0 Hypertensive heart and chronic kidney disease with heart failure and stage 1 through stage 4 chronic kidney disease, or unspecified chronic kidney disease (principal); J96.01 Acute respiratory failure with hypoxia; N17.9 Acute kidney failure, unspecified; E43 Unspecified severe protein-calorie malnutrition; R64 Cachexia; J44.1 Chronic obstructive pulmonary disease with (acute) exacerbation; D63.8 Anemia in other chronic diseases classified elsewhere; E88.09 Other disorders of plasma-protein metabolism, not elsewhere classified; I50.43 Acute on chronic combined systolic (congestive) and diastolic (congestive) heart failure; I42.9 Cardiomyopathy, unspecified; J44.9 Chronic obstructive pulmonary disease, unspecified; E11.22 Type 2 diabetes mellitus with diabetic chronic kidney disease; E11.51 Type 2 diabetes mellitus with diabetic peripheral angiopathy without gangrene; E11.65 Type 2 diabetes mellitus with hyperglycemia; E83.42 Hypomagnesemia; E83.52 Hypercalcemia; B19.20 Unspecified viral hepatitis C without hepatic coma; K74.60 Unspecified cirrhosis of liver; N18.31 Chronic kidney disease, stage 3a; S91.301A Unspecified open wound, right foot, initial encounter; X58.XXXA Exposure to other specified factors, initial encounter; I16.9 Hypertensive crisis, unspecified; I34.0 Nonrheumatic mitral (valve) insufficiency; F15.90 Other stimulant use, unspecified, uncomplicated; Z20.822 Contact with and (suspected) exposure to COVID-19; Z79.899 Other long term (current) drug therapy; Z79.4 Long term (current) use of insulin; Y93.89 Activity, other specified; Y92.89 Other specified places as the place of occurrence of the external cause; Y99.8 Other external cause status; Z59.0 Homelessness
CPT/HCPCS: 36415; 71045; 76770; 80048; 80053; 82570; 82962; 83735; 83880; 84100; 84302; 84484; 85025; 85610-TC; 85730-TC; 93005; 94640; 94760; 97112-GP; 97116-GP; 99285; G0378; J1815; J1940; J7613